=== PATIENT | male | born 1970 | race Caucasian/White ===

== ENCOUNTER 2018-09-08 16:33 | Emergency (ER) | payer MEDICAID ==
[~2018-09-08] VITALS: Ht 182.9 cm; Wt 83.9 kg
[2018-09-08] MEDS ORDERED: Haloperidol 5mg/ml Inj IM ONE (16:45)
[2018-09-08] MEDS ORDERED: DiphenhydrAMINE 50mg/ml Inj IM ONE (16:45)
[2018-09-08] MEDS ORDERED: LORazepam Inj 2mg/ml 1ml IM ONE (16:45)
[2018-09-08] MEDS ORDERED: traMADol 50mg tab ORAL ONE (17:00)
[2018-09-08] MEDS ORDERED: ALPRAZolam 0.25mg tab ORAL ONE (17:00)
--- NOTE | 2018-09-08 17:10 | NUR ---
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 According to EMS he has a hx of bipolar and MS. According to EMS, states that no hx of drug use and she has never seen him like this before. Pt noted to be rambling upon arrival to ED. Pt ordered haldol, ativan, and benadryl IM but cancelled order. Wasted meds with another RN. Orders chanegd to PO. Will continue to monitor.
[2018-09-08 17:12] VITALS: BP 182/85
--- NOTE | 2018-09-08 17:15 | NUR ---
ED Nurse Note: As per Dr. Barahona, labs does not have to be done.
[2018-09-08] MEDS ORDERED: ALPRAZOLAM0.25 MG ORAL (17:44)
[2018-09-08 17:48] VITALS: BP 177/82
--- NOTE | 2018-09-08 17:50 | NUR ---
ER DISCHARGE NOTE: Patient is cleared to be discharged per ERMD, pt is aox4, on room air, with stable vital signs. pt was given dc and prescription instructions, pt was able to verbalize understanding, pt id band removed without complications. pt is able to ambulate with steady gait. pt took all belongings.
--- NOTE | 2018-09-08 18:37 | Emergency Room Report ---
History of Present Illness General Chief Complaint: Behavioral Complaint Source: Patient, EMS, [employer] Present Illness HPI 48-year-old male presents ED for evaluation. Brought in by [employer] and EMS for behavioral complaints. Was found acting agitated and bizarre. called 911 today. States he has history of MS and history of bipolar. States he is currently not taking any medications. Upon arrival patient screaming and yelling agitated and combative. In restraints by [employer]. Patient states that he' s been fighting with his . Denies SI or HI. Denies hearing voices. Denies drug use. No other aggravating relieving factors. Denies any other associated symptoms Allergies: Coded Allergies: No Known Allergies (Unverified , 09/08/18) Patient History Past Medical History: psych hx, other - MS Past Surgical History: none Pertinent Family History: none Social History: Denies: smoking, alcohol use, drug use Immunizations: UTD Reviewed Nursing Documentation: PMH: Agreed; PSxH: Agreed Nursing Documentation-PMH Past Medical History: No History, Except For Hx Neurological Problems: Yes - MS Review of Systems All Other Systems: negative except mentioned in HPI Physical Exam Vital Signs Date Time Temp Pulse Resp B/P (MAP) Pulse Ox O2 Delivery O2 Flow Rate FiO2 09/08/18 17:12 139 19 Room Air 99 09/08/18 17:12 98.1 182/85 99 Sp02 EP Interpretation: reviewed, normal General Appearance: alert, GCS 15, non-toxic, mild distress Head: normocephalic, atraumatic Eyes: bilateral eye normal inspection, bilateral eye PERRL ENT: hearing grossly normal, normal pharynx, no angioedema, normal voice Neck: full range of motion, supple/symm/no masses Respiratory: chest non-tender, lungs clear, normal breath sounds, speaking full sentences Cardiovascular #1: regular rate, rhythm, no edema Cardiovascular #2: 2+ carotid (R), 2+ carotid (L), 2+ radial (R), 2+ radial (L) , 2+ dorsalis pedis (R), 2+ dorsalis pedis (L) Gastrointestinal: normal bowel sounds, non tender, soft, non-distended, no guarding, no rebound Rectal: deferred Genitourinary: normal inspection, no CVA tenderness Musculoskeletal: back normal, gait/station normal, normal range of motion, non- tender Neurologic: alert, oriented x3, responsive, motor strength/tone normal, sensory intact, speech normal Psychiatric: judgement/insight normal, memory normal, no suicidal/homicidal ideation, no delusions, anxious Reflexes: 3+ bicep (R), 3+ bicep (L), 3+ tricep (R), 3+ tricep (L), 3+ knee (R) , 3+ knee (L) Skin: normal color, no rash, warm/dry, well hydrated Lymphatic: no adenopathy Medical Decision Making Diagnostic Impression: Primary Impression: Anxiety ER Course Hospital Course 48 yo M presents with screaming and yelling. bizarre behavior Differential diagnoses include: ETOH, psychosis, anxiety Clinical course Patient placed on stretcher. on alarm security or surveillance monitor. After initial history, physical exam reveals a middle-aged male in no acute distress. Initial restraints placed by [employer] were DC'd. Patient is awake alert oriented. Cooperating during assessment. Maintaining good eye contact. Answering questions appropriately. She states that his called 911 after they were involved in a argument I see no evidence of danger to self or others. Patient is calm and cooperative during assessment. I offered patient Xanax here and tramadol for his chronic pain which she accepted. Patient remains calm and cooperative with stable vitals. I see no reason to place patient on a psychiatric hold. Patient will be discharged to home at this time with short course prescription of Xanax. States he'll follow-up with his psychiatrist. We'll provide referrals I. I feel this is a highly complex case requiring extensive working including EKG/Rhythm strip, Xray/CT/US, Blood/urine lab work, repeat exams while in ED, and administration of strong opiates/narcotics for pain control, admission to hospital or close patient follow up. Diagnosis - anxiety Stable and discharged to home. Followup with PMD/psych. Return to ED if symptoms recur or worse Last Vital Signs Date Time Temp Pulse Resp B/P (MAP) Pulse Ox O2 Delivery O2 Flow Rate FiO2 09/08/18 17:48 98.0 100 20 177/82 100 Room Air 99 Status: improved Disposition: HOME, SELF-CARE Condition: Stable Scripts Alprazolam* (XANAX*) 0.25 Mg Tablet 0.25 MG ORAL BID PRN for For Anxiety, #6 TAB Prov: [place],Ap MD 09/08/18 Referrals: [facility] Patient Instructions: Panic Attacks, [id number] Ap Barahona MD September 08, 2018 18:37
== END 2018-09-08 17:50 | disposition home or self-care (01) ==
LOC: EDBD 16:33 → EMR 17:50
DX: F41.9 Anxiety disorder, unspecified (principal); R46.2 Strange and inexplicable behavior; R45.1 Restlessness and agitation; G35 Multiple sclerosis
CPT/HCPCS: 99282